=== PATIENT | female | born 1990 | race Caucasian/White ===

== ENCOUNTER 2023-10-19 11:53 | Emergency (ER) | payer SELFPAY ==
[2023-10-19 12:42] VITALS: BP 112/78; PULSE 106; RESP 16; TEMP 36.4; O2SAT 100; BMI 23.2
--- NOTE | 2023-10-19 12:45 | ED_ITS ---
HPI - General Adult General Chief complaint: Upper Respiratory Symptoms Stated complaint: neck and throat pain Time Seen by Provider: 10/19/23 13:46 Source: patient Mode of arrival: ambulatory Limitations: no limitations History of Present Illness HPI narrative: 33 yold female presents to the ED for sore throat and bilateral ear pain. Patient states also bodyaches for couple of days. patient denies drooling, sharron nge in voice, Inability tolerate solid food/liquid, neck swelling, chest pain, or shortness of breath. Related Data Previous Rx's ?Medication ?Instructions ?Recorded amoxicillin 875 mg-potassium 1 tab PO Q12H 7 days #14 tabs 10/19/23 clavulanate 125 mg tablet naproxen 500 mg tablet 500 mg PO BID PRN pain 7 days #14 10/19/23 tabs Allergies Allergy/AdvReac Type Severity Reaction Status Date / Time No Known Allergies Allergy Verified 10/19/23 12:43 [No Known Allergies*] Review of Systems Review of Systems: Sore throat and bilateral ear pain Yes all other systems are reviewed and are negative [facility] Social History Social History Advance Directives: No Advance Directives Information Provided: Yes Physical Exam ED Vital Signs: Vital Signs - 24 hr 10/19/23 12:42 Temperature 97.6 F Pulse Rate 106 H Respiratory Rate 16 Blood Pressure 112/78 Pulse Oximetry 100 Oxygen Delivery Method Room Air BMI result Body Mass Index 23.2 Const General: cooperative, healthy appearing, comfortable, no acute distress, well developed, alert and awake Orientation/consciousness: oriented to person, oriented to place, oriented to time and patient oriented x3 HENMT Head: Yes normal to inspection, Yes No palpable skull fracture present, Yes norm ocephalic, Yes atraumatic and No abrasion Ears: hearing grossly normal bilaterally, external ears normal, TM's normal bilaterally, TM normal on the right, TM normal on the left, EAC's normal, mastoids normal and no periauricular adenopathy Throat: Yes posterior oropharynx normal, Yes uvula midline and Yes abnormal tonsil (erythema. negative for signs of peritonsillar abscess) Eyes General: appearance normal, both eyes and all related structures Neck Neck: Yes normal visual inspection, Yes full ROM, Yes no lymphadenopathy, Yes no meningeal signs, Yes trachea midline, Yes supple, No anterior neck swelling and No tender Chest Chest palpation & inspection: normal inspection of the chest and normal palpation of entire chest wall Resp Effort & Inspection: normal respiratory effort and able to speak in complete sentences Auscultation: clear to auscultation bilaterally Cardio Jugular venous distension: no JVD Heart sounds: S1 normal heart sound present and S2 normal heart sound present GI Inspection: Yes normal to inspection Palpation (GI): Soft to palpation, not firm, nontender, no guarding and not rigid General: Yes no CVA tenderness Back/Spine/Pelvis Back: no CVA tenderness and No back tenderness Skin General skin exam: no rashes or lesions noted, elasticity normal and turgor normal Neuro General: oriented to person, oriented to place, oriented to time, patient oriented x3, gait normal, tone normal, moves all extremities, Normal light touch and pain sensation, no meningeal signs, no focal motor deficits, CN's II-XI intact bilaterally and normal sensation to monofilament Extrem General: Yes normal to inspection, Yes full ROM and Yes capillary refill normal Psych Appearance: grossly normal, well kempt and not disheveled Course Course Course Narrative: RME performed by Bertha Pittman PA-C. Patient is a 33 year old assigned female at presenting to the emergency department with right ear pain and a sore throat. Detailed physical exam and review of systems are deferred to the clinician oncology. Swabs ordered. Patient placed back in the waiting room pending room availability and results. Medical Decision Making Medical Decision Making [facility] Narrative: 33-year-old female presents ED for sore throat bilateral ear pain. Patient positive for strep. Negative for signs of torsten tonsillar abscess. Not suspecting epiglottitis. patient will be discharged antibiotics. Differential Diagnosis Differential Diagnoses: The differential diagnosis associated with the presentation includes ( Strep, COVID, influenza, RSV) Admission/Observation Consideration of admission/observation: Escalation of care including admission/observation considered Lab Data [facility] Lab Attestation statement: I reviewed the patient's lab results. Labs: Lab Results 10/19/23 Range/Units 12:49 Influenza Type A (PCR) NEGATIVE (Negative) Influenza Type B (PCR) NEGATIVE (Negative) RSV RNA Qual (PCR) NEGATIVE (Negative) SARS-CoV-2 RNA (RT-PCR) NEGATIVE (Negative) S. pyogenes GrpA KRISTIN Positive A (Negative) Independent Historian Clinical information obtained from an independent historian. History obtained from or confirmed by: Other ( patient) External Record Review External record reviewed: Other ( prior visits) Prescription Management I considered prescription management with: Pain Medication and Antibiotic Discharge Plan Discharge Clinical Impression: Strep throat Patient Disposition: Home, Self-Care Instructions: Strep Throat (ED) Additional Instructions: return to the ED immediately for any drooling, change in voice, neck swelling, weakness, dizziness, inability to tolerate solid food/liquid, chest pain, shortness of breath, or any other concerning symptoms. Prescriptions: New amoxicillin-pot clavulanate 875-125 mg tablet 1 tab PO Q12H 7 Days Qty: 14 0RF naproxen 500 mg tablet 500 mg PO BID PRN (Reason: pain) 7 Days Qty: 14 0RF Stand Alone Forms: Work/School Release Interventions: ED Discharge Assessment Last Done: 10/19/23 14:58 Discharge Date/Time: 10/19/23 14:58 Print Language: Anguillan
[2023-10-19 13:04] LABS: IDNOW Serial# 08D9AD1C; Strep A Nucleic Acid Positive (Negative)
[2023-10-19 13:40] LABS: Influenza A PCR NEGATIVE (Negative); Influenza B PCR NEGATIVE (Negative); Resp Syncy Virus RNA Qual PCR NEGATIVE (Negative); SARS COV2 PCR INHOUSE NEGATIVE (Negative)
[2023-10-19 14:58] VITALS: BP 104/73; PULSE 84; RESP 18; TEMP 37.1; O2SAT 100
== END 2023-10-19 14:58 | disposition home or self-care (01) ==
PROVIDERS: Physician Assistant Medical; Emergency Provider Student in an Organized Health Care Education/Training Program
DX: J02.0 Streptococcal pharyngitis (principal); H92.03 Otalgia, bilateral; Z03.818 Encounter for observation for suspected exposure to other biological agents ruled out
CPT/HCPCS: 0241U; 87651; 99282; 99283

== ENCOUNTER 2023-11-16 12:09 | Emergency (ER) | payer SELFPAY ==
--- NOTE | 2023-11-16 12:35 | ED_ITS ---
HPI - General Adult General Chief complaint: Nausea/Vomiting/Diarrhea Stated complaint: vomiting Related Data Previous Rx's ?Medication ?Instructions ?Recorded amoxicillin 875 mg-potassium 1 tab PO Q12H 7 days #14 tabs 10/19/23 clavulanate 125 mg tablet naproxen 500 mg tablet 500 mg PO BID PRN pain 7 days #14 10/19/23 tabs Allergies Allergy/AdvReac Type Severity Reaction Status Date / Time No Known Allergies Allergy Verified 11/16/23 12:37 [No Known Allergies*] PMFSH Social History Social History Advance Directives: No Advance Directives Information Provided: No Physical Exam ED Vital Signs: Vital Signs - 24 hr 11/16/23 12:36 Temperature 98.0 F Pulse Rate 94 Respiratory Rate 14 Blood Pressure 107/78 Pulse Oximetry 100 Oxygen Delivery Method Room Air BMI result Body Mass Index 23.6 Course Course Course Narrative: This is an RME: Additional HPI, ROS, PE not included below will be deferred to primary provider. RME assessment and note performed by: Edda Sánchez PA-C This is a 78-elco-fcx-mauritian speaking female presenting to the ER with a complaint of nausea and vomiting x 3 days. Endorsing subjective fevers. Denies abdominal pain or diarrhea. Further ER evaluation needed. LMP 5/6 Plan: Labs, UA Reevaluation(s) Reevaluation #1: Patient left without completing treatment. Medical Decision Making Lab Data 11/16/23 12:49 11/16/23 12:49 Labs: Lab Results 11/16/23 Range/Units 12:49 WBC 7.6 (4.8-10.8) X10*3/uL RBC 4.82 (4.20-5.50) X10*6/uL Hgb 14.1 (12.0-16.0) g/dl Hct 43.6 (37.0-47.0) % MCV 90.5 (80.0-98.0) fL MCH 29.3 (27.0-33.0) pg MCHC 32.3 (31.0-35.0) g/dl RDW 13.1 (11.0-16.0) % Plt Count 192 (160-400) X10*3/uL MPV 10.7 (9.4-12.3) fL Immature Gran % (Auto) 0.4 (0.0-0.4) % Neut % (Auto) 78.8 H (45-73) % Lymph % (Auto) 15.0 L (20-40) % Jenkins % (Auto) 3.8 (2-11) % Eos % (Auto) 1.3 (0-4) % Baso % (Auto) 0.7 (0-2) % Lymph # (Auto) 1.1 L (1.2-4.9) X10*3/uL Jenkins # (Auto) 0.3 (0.1-1.2) X10*3/uL Eos # (Auto) 0.1 (0.0-0.4) X10*3/uL Baso # (Auto) 0.1 (0.0-0.2) X10*3/uL Abs Immat Gran (auto) 0.03 (0.00-0.03) X10*3/uL Absolute Neuts (auto) 6.0 (2.0-8.3) x10*3/uL Absolute Nucleated RBC 0.000 (0.0-0.012) X10*3/uL Nucleated RBC % (auto) 0.0 (0.0-0.2) /100WBC Sodium 138 (135-145) mmol/L Potassium 4.9 (3.3-5.1) mmol/L Chloride 108 (96-108) mmol/L Carbon Dioxide 23 (22-29) mmol/L Anion Gap 12 (12-20) BUN 16 (9-16) mg/dL Creatinine 0.81 (0.5-1.4) mg/dL Estim Creat Clear Calc 78.8 Estimated GFR > 60 Random Glucose 88 (60-115) mg/dL Calcium 9.8 (8.4-10.2) mg/dL Magnesium 1.9 (1.6-2.6) mg/dL Total Bilirubin 0.6 (0.0-1.0) mg/dL Direct Bilirubin 0.2 (0.0-0.5) mg/dL AST 17 (5-31) U/L ALT 14 (0-31) U/L Alkaline Phosphatase 77 (39-117) U/L Total Protein 7.8 (6.5-8.0) g/dL Albumin 4.4 (3.5-5.0) g/dL Lipase 22 (8-78) U/L Beta HCG, Quant < 2 mIU/mL Influenza Type A (PCR) NEGATIVE (Negative) Influenza Type B (PCR) NEGATIVE (Negative) RSV RNA Qual (PCR) NEGATIVE (Negative) SARS-CoV-2 RNA (RT-PCR) NEGATIVE (Negative) S. pyogenes GrpA KRISTIN Positive A (Negative) Discharge Plan Discharge Clinical Impression: Vomiting Patient Disposition: Left W/O Completing Treatment Prescriptions: No Action amoxicillin-pot clavulanate 875-125 mg tablet 1 tab PO Q12H 7 Days Qty: 14 0RF naproxen 500 mg tablet 500 mg PO BID PRN (Reason: pain) 7 Days Qty: 14 0RF Discharge Date/Time: 11/16/23 20:05
[2023-11-16 12:36] VITALS: BP 107/78; PULSE 94; RESP 14; TEMP 36.7; O2SAT 100; BMI 23.6
[2023-11-16 12:55] LABS: MANUAL DIFF FLAG NO
[2023-11-16 12:56] LABS: Basophils Absolute Auto 0.1 X10*3/uL (0.0-0.2); Basophils Percent Auto 0.7 % (0-2); Eosinophils Absolute Auto 0.1 X10*3/uL (0.0-0.4); Eosinophils Percent Auto 1.3 % (0-4); Hematocrit 43.6 % (37.0-47.0); Hemoglobin 14.1 g/dl (12.0-16.0); Imm Gran Abs Auto 0.03 X10*3/uL (0.00-0.03); Imm Gran Pct Auto 0.4 % (0.0-0.4); Lymphocytes Absolute Auto 1.1 X10*3/uL (1.2-4.9); Mean Corpuscular HGB Conc 32.3 g/dl (31.0-35.0); Mean Corpuscular Hemoglobin 29.3 pg (27.0-33.0); Mean Corpuscular Volume 90.5 fL (80.0-98.0); Mean Platelet Volume 10.7 fL (9.4-12.3); Monocytes Absolute Auto 0.3 X10*3/uL (0.1-1.2); Monocytes Percent Auto 3.8 % (2-11); Neutrophils Percent Auto 78.8 % (45-73); Platelet Count 192 X10*3/uL (160-400); Red Blood Count 4.82 X10*6/uL (4.20-5.50); Red Cell Distribution Width 13.1 % (11.0-16.0); White Blood Count 7.6 X10*3/uL (4.8-10.8)
[2023-11-16 13:05] LABS: IDNOW Serial# 58CA691E; Strep A Nucleic Acid Positive (Negative)
[2023-11-16 13:30] LABS: Alanine Aminotransferase 14 U/L (0-31); Albumin Level 4.4 g/dL (3.5-5.0); Alkaline Phosphatase 77 U/L (39-117); Anion Gap 12 (12-20); Aspartate Amino Transferase 17 U/L (5-31); Bilirubin Direct 0.2 mg/dL (0.0-0.5); Bilirubin Total 0.6 mg/dL (0.0-1.0); Blood Urea Nitrogen 16 mg/dL (9-16); Calcium 9.8 mg/dL (8.4-10.2); Carbon Dioxide 23 mmol/L (22-29); Chloride 108 mmol/L (96-108); Creatinine Clr Calc Pharmacy 78.8; Estimated Glomerular Filt Rate > 60; Glucose Random 88 mg/dL (60-115); HCG Quantitative < 2 mIU/mL; Lipase 22 U/L (8-78); Magnesium 1.9 mg/dL (1.6-2.6); Potassium 4.9 mmol/L (3.3-5.1); Sodium 138 mmol/L (135-145); Total Protein 7.8 g/dL (6.5-8.0)
[2023-11-16 13:36] LABS: Influenza A PCR NEGATIVE (Negative); Influenza B PCR NEGATIVE (Negative); Resp Syncy Virus RNA Qual PCR NEGATIVE (Negative); SARS COV2 PCR INHOUSE NEGATIVE (Negative)
== END 2023-11-16 20:05 | disposition left against medical advice (07) ==
LOC: HO.ED 20:04
PROVIDERS: Physician Assistant Medical; Emergency Provider Emergency Medicine
DX: R11.10 Vomiting, unspecified (principal); Z03.818 Encounter for observation for suspected exposure to other biological agents ruled out
CPT/HCPCS: 0241U; 36415; 80048; 80076; 83690; 83735; 84702; 85025; 87651; 99281; 99283

== ENCOUNTER 2024-01-24 17:09 | Emergency (ER) | payer SELFPAY ==
--- NOTE | ~2024-01-24 | US_ITS ---
EXAMINATION: US PELVIS AND TRANSVAGINAL US PELVIS OVARIAN DOPPLER CLINICAL INFORMATION: Lower abdominal pain. COMPARISON: 04/07/2016 TECHNIQUE: Ultrasound of the pelvis is performed using both transabdominal and transvaginal transducers along with Doppler. Transvaginal imaging is performed due to inadequate visualization transabdominally. FINDINGS: Uterus and adnexa are not well seen on transabdominal imaging. Therefore, transvaginal imaging is required. The uterus is retroverted/retroflexed and measures 8.6 x 3.8 x 5.9 cm (cervix to fundus x AP x transverse dimension). The myometrial echotexture is normal. No uterine leiomyoma. The endometrium measures up to 0.9 cm AP thickness. No focal endometrial lesion. The right ovary is 2.6 x 1.3 x 2.4 cm, 4.3 mL. The left ovary is 4.4 x 2.5 x 2.4 cm, 13.8 mL. Note that an echogenic area seen within the left ovary could be artifactual or due to a collapsed corpus luteum. There is no suspicious adnexal lesion. Color Doppler images with spectral waveforms show grossly normal arterial and venous flow within each ovary. No pelvic free fluid. US/US pelvic and transvaginal IMPRESSION: No acute sonographic abnormalities in the pelvis. No evidence of ovarian torsion or pelvic free fluid.
--- NOTE | ~2024-01-24 | US_ITS ---
EXAMINATION: US PELVIS AND TRANSVAGINAL US PELVIS OVARIAN DOPPLER CLINICAL INFORMATION: Lower abdominal pain. COMPARISON: 04/07/2016 TECHNIQUE: Ultrasound of the pelvis is performed using both transabdominal and transvaginal transducers along with Doppler. Transvaginal imaging is performed due to inadequate visualization transabdominally. FINDINGS: Uterus and adnexa are not well seen on transabdominal imaging. Therefore, transvaginal imaging is required. The uterus is retroverted/retroflexed and measures 8.6 x 3.8 x 5.9 cm (cervix to fundus x AP x transverse dimension). The myometrial echotexture is normal. No uterine leiomyoma. The endometrium measures up to 0.9 cm AP thickness. No focal endometrial lesion. The right ovary is 2.6 x 1.3 x 2.4 cm, 4.3 mL. The left ovary is 4.4 x 2.5 x 2.4 cm, 13.8 mL. Note that an echogenic area seen within the left ovary could be artifactual or due to a collapsed corpus luteum. There is no suspicious adnexal lesion. Color Doppler images with spectral waveforms show grossly normal arterial and venous flow within each ovary. No pelvic free fluid. US/US pelvic ovarian doppler IMPRESSION: No acute sonographic abnormalities in the pelvis. No evidence of ovarian torsion or pelvic free fluid.
[2024-01-24 17:21] VITALS: BP 128/79; PULSE 95; RESP 16; TEMP 36.6; O2SAT 98; BMI 22.9
--- NOTE | 2024-01-24 17:24 | ED.ABDPAIN ---
HPI - Abdominal Pain General Chief Complaint: Abdominal Pain Stated Complaint: lwr abd pain Time Seen by Provider: 01/24/24 18:36 Source: patient, RN notes reviewed, old records reviewed and official court interpreter Mode of arrival: ambulatory Limitations: language barrier History of Present Illness ED Provider: Remedios HPI narrative: 33-year-old female presents for evaluation of lower abdominal pain Patient reports her pain started last night. She denies any nausea vomiting, diarrhea. Denies any urinary symptoms including frequency, dysuria, vaginal bleeding or discharge Her pain, inside with the end of her menstrual cycle The patient denies any concern for sexually transmitted infections She does not believe that she is Related Data Previous Rx's ?Medication ?Instructions ?Recorded amoxicillin 875 mg-potassium 1 tab PO Q12H 7 days #14 tabs 10/19/23 clavulanate 125 mg tablet naproxen 500 mg tablet 500 mg PO BID PRN pain 7 days #14 10/19/23 tabs cefuroxime axetil 250 mg tablet 250 mg PO Q12H #10 tabs 01/24/24 Allergies Allergy/AdvReac Type Severity Reaction Status Date / Time No Known Allergies Allergy Verified 01/24/24 17:27 [No Known Allergies*] Review of Systems Constitutional: Denies chills and Reports fever(s) (Patient reports subjective fevers yesterday, none today) Denies sore throat Cardiovascular: Denies chest pain and Denies dyspnea Respiratory: Denies cough and Denies dyspnea Gastrointestinal: Reports abdominal pain, Denies nausea and Denies vomiting Genitourinary: Denies difficulty voiding and Reports pelvic pain Musculoskeletal: Denies back pain PMFSH Social History Social History Smoked in Last 30 Days: Yes Use of substances other than those prescribed or required for medical reasons: No Advance Directives: No Advance Directives Information Provided: No Do you have a plan to hurt others: No Plan Patient : No Physical Exam ED Vital Signs: Vital Signs - 24 hr 01/24/24 17:21 01/24/24 17:52 01/24/24 18:56 Temperature 98 F 98.7 F 97.5 F Pulse Rate 95 76 69 Respiratory Rate 16 16 17 Blood Pressure 128/79 118/82 113/83 Pulse Oximetry 98 98 97 Oxygen Delivery Method Room Air Room Air Room Air BMI result Body Mass Index 22.9 Const General: healthy appearing, comfortable, no acute distress, alert and awake Nutritional Appearance: well nourished Orientation/consciousness: patient oriented x3 HENMT Head: Yes normocephalic and Yes atraumatic Throat: Yes posterior oropharynx normal Eyes Eyelids: Yes eyelids normal Conjunctivae: conjunctivae normal Sclerae: sclerae normal Corneas: corneas normal Pupils: Equal, round and reactive pupils present EOM: EOMs intact bilaterally Neck Neck: Yes full ROM Resp Effort & Inspection: normal respiratory effort, able to speak in complete sentences, no audible wheezes and not labored Auscultation: clear to auscultation bilaterally Cardio Rate: regular rate Rhythm: regular rhythm GI Inspection: No distended Palpation (GI): Soft to palpation, not firm, Tenderness to palpation present (GI) suprapubicly, no guarding and not rigid Skin General skin exam: elasticity normal Neuro General: patient oriented x3 Cranial nerves: Yes Equal, round and reactive pupils present and Yes Bilaterally intact EOM present Cognition (Neuro): normal cognition Extrem Other: Moving all extremities well without any obvious deformities Course Course Course Narrative: This is a Rapid Medical Examination (RME) performed by Laly Cooper PA-C in triage. Full HPI, ROS, assessment and treatment plan per primary provider in the Main ED. 33 yo female here w/ sharp lower abdominal pain which began last night while lying down. constant since onset. feels like ovary pain . endorses fever yesterday, no documented temp. LMP ended 4 days ago. denies vaginal discharge, dysuria, hematuria, nausea, vomiting. + abdomen soft, slightly distended, ttp of LLQ, RLQ, no palpable masses. Plan: labs, ua, upreg +/- imaging per primary provider Medical Decision Making Medical Decision Making [facility] Narrative: 33-year-old female who denies any past medical history presents for evaluation of lower abdominal/pelvic pain. She has minimal tenderness on exam, her tenderness is suprapubic, less likely to be acute appendicitis. She has no GI symptoms as well. She has no leukocytosis or anemia. The patient's pain coincided with the end of her menstrual cycle, high likelihood for ovarian cyst. Plan for urinalysis to evaluate for UTI, ultrasound to rule out ovarian torsion. The patient declines pelvic examination at this time Differential Diagnosis Differential Diagnoses: The differential diagnosis associated with the presentation includes UTI Cystitis Ovarian cyst Ovarian torsion PID Lab Data [facility] Lab Attestation statement: I reviewed the patient's lab results. 01/24/24 17:49 01/24/24 17:49 Labs: Lab Results 01/24/24 01/24/24 Range/Units 17:49 18:02 WBC 9.5 (4.8-10.8) X10*3/uL RBC 4.89 (4.20-5.50) X10*6/uL Hgb 14.8 (12.0-16.0) g/dl Hct 44.4 (37.0-47.0) % MCV 90.8 (80.0-98.0) fL MCH 30.3 (27.0-33.0) pg MCHC 33.3 (31.0-35.0) g/dl RDW 13.5 (11.0-16.0) % Plt Count 209 (160-400) X10*3/uL MPV 10.4 (9.4-12.3) fL Immature Gran % (Auto) 0.4 (0.0-0.4) % Neut % (Auto) 73.6 H (45-73) % Lymph % (Auto) 19.5 L (20-40) % Woodward % (Auto) 5.5 (2-11) % Eos % (Auto) 0.5 (0-4) % Baso % (Auto) 0.5 (0-2) % Lymph # (Auto) 1.8 (1.2-4.9) X10*3/uL Woodward # (Auto) 0.5 (0.1-1.2) X10*3/uL Eos # (Auto) 0.1 (0.0-0.4) X10*3/uL Baso # (Auto) 0.1 (0.0-0.2) X10*3/uL Abs Immat Gran (auto) 0.04 H (0.00-0.03) X10*3/uL Absolute Neuts (auto) 7.0 (2.0-8.3) x10*3/uL Absolute Nucleated RBC 0.000 (0.0-0.012) X10*3/uL Nucleated RBC % (auto) 0.0 (0.0-0.2) /100WBC Sodium 142 (135-145) mmol/L Potassium 3.6 D (3.3-5.1) mmol/L Chloride 107 (96-108) mmol/L Carbon Dioxide 26 (22-29) mmol/L Anion Gap 13 (12-20) BUN 12 (9-16) mg/dL Creatinine 0.82 (0.5-1.4) mg/dL Estim Creat Clear Calc 74.3 Estimated GFR > 60 Random Glucose 93 (60-115) mg/dL Calcium 9.8 (8.4-10.2) mg/dL Magnesium 2.0 (1.6-2.6) mg/dL Total Bilirubin 1.3 H (0.0-1.0) mg/dL AST 22 (5-31) U/L ALT 22 (0-31) U/L Alkaline Phosphatase 79 (39-117) U/L Total Protein 7.7 (6.5-8.0) g/dL Albumin 4.6 (3.5-5.0) g/dL Lipase 11 (8-78) U/L Urine Color Dark Yellow Urine Appearance Cloudy Urine pH 7.0 (5.0-9.0) Ur Specific Easley >= 1.030 H (1.005-1.025) Urine Protein 30 (1+) H (Neg-Trace) mg/dL Urine Glucose (UA) Negative (Negative) mg/dL Urine Ketones 40 (Negative) mg/dL Urine Blood Negative (Negative) Urine Nitrite Negative (Negative) Ur Leukocyte Esterase Trace H (Negative) Urine RBC 0-2 (0-2) /HPF Urine WBC 0-5 (0-5) /HPF Ur Squamous Epith Cells 6-10 (0-2) /HPF Urine Bacteria 2+ (None Seen) Hyaline Casts 3-5 (0-2) /LPF Urine Test NEGATIVE (NEGATIVE) Radiology Impression Discussion of test interpretation with radiology: I have reviewed the radiologist's reading. Radiologist Impression: US/US pelvic and transvaginal IMPRESSION: No acute sonographic abnormalities in the pelvis. No evidence of ovarian torsion or pelvic free fluid. Medications Administered Discontinued Medications Generic Name Dose Route Start Last Admin Trade Name Freq PRN Reason Stop Dose Admin Acetaminophen 975 mg 01/24/24 18:45 01/24/24 18:54 Acetaminophen 325 Mg Tablet PO 01/24/24 18:46 975 mg ONCE ONE Administration Discharge Plan Discharge Clinical Impression: Lower abdominal pain, UTI (urinary tract infection) Patient Disposition: Home, Self-Care Instructions: Urinary Tract Infection in Women (ED) Additional Instructions: Your ultrasound did not show any concerning abnormalities. You do have a urinary tract infection which may explain your lower abdominal pain. Take the antibiotic twice daily for 5 days Prescriptions: New cefuroxime axetil 250 mg tablet 250 mg PO Q12H Qty: 10 0RF No Action amoxicillin-pot clavulanate 875-125 mg tablet 1 tab PO Q12H 7 Days Qty: 14 0RF naproxen 500 mg tablet 500 mg PO BID PRN (Reason: pain) 7 Days Qty: 14 0RF Print Language: Maltese
[2024-01-24 17:52] VITALS: BP 118/82; PULSE 76; RESP 16; TEMP 37.1; O2SAT 98
[2024-01-24 17:53] LABS: MANUAL DIFF FLAG NO
[2024-01-24 17:54] LABS: Basophils Absolute Auto 0.1 X10*3/uL (0.0-0.2); Basophils Percent Auto 0.5 % (0-2); Eosinophils Absolute Auto 0.1 X10*3/uL (0.0-0.4); Eosinophils Percent Auto 0.5 % (0-4); Hematocrit 44.4 % (37.0-47.0); Hemoglobin 14.8 g/dl (12.0-16.0); Imm Gran Abs Auto 0.04 X10*3/uL (0.00-0.03); Imm Gran Pct Auto 0.4 % (0.0-0.4); Lymphocytes Absolute Auto 1.8 X10*3/uL (1.2-4.9); Lymphocytes Percent Auto 19.5 % (20-40); Mean Corpuscular HGB Conc 33.3 g/dl (31.0-35.0); Mean Corpuscular Hemoglobin 30.3 pg (27.0-33.0); Mean Corpuscular Volume 90.8 fL (80.0-98.0); Mean Platelet Volume 10.4 fL (9.4-12.3); Monocytes Absolute Auto 0.5 X10*3/uL (0.1-1.2); Monocytes Percent Auto 5.5 % (2-11); Neutrophils Percent Auto 73.6 % (45-73); Platelet Count 209 X10*3/uL (160-400); Red Blood Count 4.89 X10*6/uL (4.20-5.50); Red Cell Distribution Width 13.5 % (11.0-16.0); White Blood Count 9.5 X10*3/uL (4.8-10.8)
--- NOTE | 2024-01-24 18:03 | MHC.EDTECH ---
this pct just assumed care of patient ,vitals taken ,patient urine sample collected and sent to lab .
[2024-01-24 18:12] LABS: Alanine Aminotransferase 22 U/L (0-31); Albumin Level 4.6 g/dL (3.5-5.0); Alkaline Phosphatase 79 U/L (39-117); Anion Gap 13 (12-20); Aspartate Amino Transferase 22 U/L (5-31); Bilirubin Total 1.3 mg/dL (0.0-1.0); Blood Urea Nitrogen 12 mg/dL (9-16); Calcium 9.8 mg/dL (8.4-10.2); Carbon Dioxide 26 mmol/L (22-29); Chloride 107 mmol/L (96-108); Creatinine Clr Calc Pharmacy 74.3; Estimated Glomerular Filt Rate > 60; Glucose Random 93 mg/dL (60-115); Lipase 11 U/L (8-78); Potassium 3.6 mmol/L (3.3-5.1); Sodium 142 mmol/L (135-145); Total Protein 7.7 g/dL (6.5-8.0)
[2024-01-24 18:13] LABS: Appearance Urine Cloudy; Color Urine Dark Yellow; Glucose Urine UA Negative (Negative); Leukocyte Esterase Urine Trace (Negative); Nitrite Urine Negative (Negative); Specific Gravity - Urine >= 1.030 (1.005-1.025); UMIC TRIGGER UACC YES; Urine Blood Negative (Negative); Urine Ketones 40 mg/dL (Negative); Urine Protein 30 (1+) mg/dL (Neg-Trace)
[2024-01-24 18:14] LABS: UPreg QC Valid YES; Urine Pregnancy NEGATIVE (NEGATIVE)
[2024-01-24 18:15] LABS: Bacteria Urine 2+ (None Seen); RBC Urine 0-2 /HPF (0-2); WBC Urine 0-5 /HPF (0-5)
[2024-01-24] MEDS: Acetaminophen 325 MG TABLET 975 MG PO (18:54)
[2024-01-24 18:56] VITALS: BP 113/83; PULSE 69; RESP 17; TEMP 36.4; O2SAT 97
[2024-01-24 20:54] VITALS: BP 113/83; PULSE 69; RESP 17; TEMP 36.4; O2SAT 97
== END 2024-01-24 20:54 | disposition home or self-care (01) ==
PROVIDERS: Physician Assistant Medical; Emergency Provider Emergency Medicine
DX: R10.2 Pelvic and perineal pain (principal); N39.0 Urinary tract infection, site not specified; Z79.899 Other long term (current) drug therapy; R50.9 Fever, unspecified
CPT/HCPCS: 36415; 76830; 76856; 80053; 81001; 81025; 83690; 83735; 85025; 93975; 99284